=== PATIENT | female | born 1995 | race Caucasian/White ===

== ENCOUNTER → 2020-01-08 | Outpatient (CLI) | payer OTHER | END | disposition home or self-care (01) | LOC: COVID19 00:19 | DX: Z20.828 Contact with and (suspected) exposure to other viral communicable diseases (principal) ==

== ENCOUNTER 2020-10-07 14:28 | Emergency (ER) | payer OTHER ==
[~2020-10-07] VITALS: Ht 160 cm; Wt 125.2 kg
[2020-10-07 14:46] VITALS: BP 129/82
[2020-10-07] MEDS ORDERED: NAPROSYN500 MG PO (19:39)
[2020-10-07] MEDS ORDERED: METHOCARBAMOL750 M1 PO (19:39)
== END 2020-10-07 20:03 | disposition home or self-care (01) ==
LOC: ED 14:28
DX: S60.222A Contusion of left hand, initial encounter (principal); S39.012A Strain of muscle, fascia and tendon of lower back, initial encounter; Z88.8 Allergy status to other drugs, medicaments and biological substances; Z79.899 Other long term (current) drug therapy; V89.2XXA Person injured in unspecified motor-vehicle accident, traffic, initial encounter; Y93.89 Activity, other specified; Y92.89 Other specified places as the place of occurrence of the external cause; Y99.8 Other external cause status

== ENCOUNTER 2021-09-10 08:57 | Emergency (ER) | payer OTHER ==
[~2021-09-10] VITALS: Wt 120.2 kg
[~2021-09-10 08:57] MED LIST: METHOCARBAMOL750 M1 PO; NAPROSYN500 MG PO
[2021-09-10 09:05] VITALS: BP 121/80
== END 2021-09-10 12:14 | disposition left against medical advice (07) ==
LOC: ED 08:57
DX: R11.10 Vomiting, unspecified (principal); R42 Dizziness and giddiness; Z53.21 Procedure and treatment not carried out due to patient leaving prior to being seen by health care provider

== ENCOUNTER 2022-06-15 19:40 | Emergency (ER) | payer OTHER ==
[~2022-06-15] VITALS: Wt 102.1 kg
[2022-06-15 20:05] VITALS: BP 128/87
== END 2022-06-15 21:03 | disposition left against medical advice (07) ==
LOC: ED 19:40
DX: R11.10 Vomiting, unspecified (principal); R07.89 Other chest pain; Z53.21 Procedure and treatment not carried out due to patient leaving prior to being seen by health care provider

== ENCOUNTER 2023-12-28 11:10 | Emergency (ER) | payer OTHER ==
[~2023-12-28] VITALS: Ht 162.5 cm; Wt 63.5 kg
[2023-12-28 11:54] VITALS: BP 136/57
[2023-12-28] MEDS ORDERED: Tdap Vaccine 0.5 ML SYR (Adult Vaccine) IM ONE (12:00)
[2023-12-28] MEDS ORDERED: ceFAZolin sodium 2 GM in SYRINGE INFUSION 20 ML IV ONE (13:50)
[2023-12-28] MEDS ORDERED: MORPHINE Sulfate 2 MG/ML SYR IV ONE (14:15)
[2023-12-28] MEDS ORDERED: Ondansetron Hydrochloride 4 MG/2 ML VIAL IV ONE (14:15)
[2023-12-28] MEDS ORDERED: Lidocaine Hydrochloride 5 ML AMP SC ONE (15:10)
[2023-12-28] MEDS ORDERED: HYDROCODONE-AC1 EAC1 PO (17:18)
[2023-12-28] MEDS ORDERED: CEFADROXIL500 M1 PO (17:18)
== END 2023-12-28 18:24 | disposition home or self-care (01) ==
LOC: ED 11:10
DX: S62.615B Displaced fracture of proximal phalanx of left ring finger, initial encounter for open fracture (principal); Z88.1 Allergy status to other antibiotic agents; W31.89XA Contact with other specified machinery, initial encounter; Y93.89 Activity, other specified; Y92.69 Other specified industrial and construction area as the place of occurrence of the external cause; Y99.0 Civilian activity done for income or pay